=== PATIENT | female | born 1935 | race Caucasian/White ===

== ENCOUNTER 2021-10-02 11:26 | Inpatient (IN) | payer MEDICARE ==
[~2021-10-02] VITALS: Ht 160 cm; Wt 63.5 kg
[~2021-10-02 11:26] MED LIST: ASPIRIN LOW-STR81 MG PO; B-12; CALCIUM; COQ-10; FISH OIL; MULTIMINERAL; NIACIN; VITAMIN D3; Z.0.PRAVASTATIN SOD2 PO; Z.2.LISINOPRIL-HCT1 PO
[2021-10-02] MEDS ORDERED: ONDANSETRON HCL INJ 2MG/ML 2ML 2 MG/ML VIAL IV STA (11:37)
[2021-10-02] MEDS ORDERED: ONDANSETRON HCL INJ 2MG/ML 2ML 2 MG/ML VIAL ONE ×2 (12:07→12:20)
[2021-10-02] MEDS ORDERED: IOPAMIDOL 370 MG/ML 100 ML INFUS..BTL INJ ONE (12:14)
[2021-10-02] MEDS ORDERED: SODIUM CHLORIDE 0.9% 500ML 500 ML IV ONE (12:15)
[2021-10-02] MEDS ORDERED: DEXAMETHASONE SOD PHOS INJ 4 MG/ML SDV ONE (12:20)
[2021-10-02] MEDS ORDERED: LIDOCAINE HCL 2% LOCAL INJ 5 ML SDV VIAL INJ ONE (12:20)
[2021-10-02] MEDS ORDERED: POVIDONE IODINE 0.05% 0.05 % ML PO ONE (12:20)
[2021-10-02] MEDS ORDERED: PROPOFOL IV EMULSION 10 MG/ML 20 ML VIAL ONE (12:20)
[2021-10-02] MEDS ORDERED: SUCCINYLCHOLINE CHLORIDE 20 MG/ML 10ML VIAL ONE (12:20)
[2021-10-02] MEDS ORDERED: SEVOFLURANE INHAL SOLN 250 ML PEN BTL ONE (12:20)
[2021-10-02] MEDS ORDERED: SODIUM CHLORIDE 0.9% 500ML 500 ML ONE (12:55)
[2021-10-02] MEDS ORDERED: Morphine 2mg Syringe 2 MG/ML SYR IV ONE (15:00)
[2021-10-02] MEDS ORDERED: HYDRALAZINE HCL 20 MG/ML VIAL IV PRN (15:15)
[2021-10-02] MEDS ORDERED: Morphine 4mg INJECTION 4 MG/ML INJ ONE (16:05)
[2021-10-02 16:38] VITALS: BP 135/48
[2021-10-02] MEDS ORDERED: SODIUM CHLORIDE 0.9% 1000ML 1,000 ML ONE (18:01)
[2021-10-02 18:02] VITALS: BP 135/48
[2021-10-02] MEDS ORDERED: MELATONIN3 MG PO (18:11)
[2021-10-02] MEDS ORDERED: METOPROLOL SUCC25 MG PO (18:11)
[2021-10-02 19:50] VITALS: BP 133/69
[2021-10-02 20:00] VITALS: BP 133/49
[2021-10-03] VITALS (8 sets, daily range): BP systolic 118–144; BP diastolic 43–57
[2021-10-03] MEDS: Morphine 2mg Syringe 2 MG/ML SYR IV PRN ×3 (00:15→16:51)
[2021-10-03] MEDS: FAMOTIDINE 20 MG/2 ML VIAL IV SCH (09:02)
[2021-10-03] MEDS: ONDANSETRON HCL INJ 2MG/ML 2ML 2 MG/ML VIAL IV PRN ×2 (09:08→16:51)
[2021-10-03 09:12] LABS: BASOPHILS # (AUTO) 0.1 (0.0-0.1); BASOPHILS % 0.9 % (0.0-1.0); EOSINOPHILS # (AUTO) 0.1 (0.0-0.4); EOSINOPHILS % 1.1 % (0.0-6.0); HEMATOCRIT 37.9 % (34.2-44.1); HEMOGLOBIN 11.8 g/dL (12.0-16.0); LYMPHOCYTES % 21.8 % (18.0-39.1); MEAN CORPUSCULAR HEMOGLOBIN 28.4 pg (28-32); MEAN CORPUSCULAR HGB CONC 31.1 g/dL (31-35); MEAN CORPUSCULAR VOLUME 91.1 fL (81-99); MONOCYTES % 10.4 % (4.4-11.3); NEUTROPHILS # (AUTO) 6.1 (2.1-6.9); NEUTROPHILS % 65.6 % (38.7-80.0); PLATELET COUNT 246 x10e3/uL (140-360); RED BLOOD COUNT 4.16 x10e6/uL (3.6-5.1); RED CELL DISTRIBUTION WIDTH 20.6 % (11.7-14.4)
[2021-10-03 09:32] LABS: ALBUMIN 3.4 g/dL (3.5-5.0); CALCIUM 8.7 mg/dL (8.4-10.2); CREATININE, SERUM 0.99 mg/dL (0.57-1.11)
[2021-10-03] MEDS: SODIUM CHLORIDE 0.9% 1000ML 1,000 ML IV SCH ×3 (12:46→21:17)
[2021-10-04] VITALS (9 sets, daily range): BP systolic 134–150; BP diastolic 48–56
[2021-10-04] MEDS: SODIUM CHLORIDE 0.9% 1000ML 1,000 ML IV SCH ×2 (09:27→17:51)
[2021-10-04] MEDS: FAMOTIDINE 20 MG/2 ML VIAL IV SCH (09:28)
[2021-10-04] MEDS: ONDANSETRON HCL INJ 2MG/ML 2ML 2 MG/ML VIAL IV PRN (22:50)
[2021-10-04] MEDS: Morphine 2mg Syringe 2 MG/ML SYR IV PRN (22:50)
[2021-10-05 01:22] VITALS: BP 122/47
[2021-10-05] MEDS: SODIUM CHLORIDE 0.9% 1000ML 1,000 ML IV SCH ×2 (02:44→13:00)
[2021-10-05 05:58] VITALS: BP 131/45
[2021-10-05 08:29] VITALS: BP 129/49
[2021-10-05] MEDS: FAMOTIDINE 20 MG/2 ML VIAL IV SCH (10:26)
[2021-10-05 12:17] VITALS: BP 147/52
[2021-10-05] MEDS ORDERED: BUPIVACAINE 0.25% 30ML SDV ONE (12:39)
[2021-10-05] MEDS ORDERED: FENTANYL CITRATE/PF 100MCG/2 ML INJ ONE (12:54)
[2021-10-05] MEDS ORDERED: MIDAZOLAM HCL 2 MG/2 ML VIAL ONE (12:54)
[2021-10-05] MEDS ORDERED: ACETAMINOPHEN 1000 MG/100 ML 100 ML IV ONE (14:02)
[2021-10-05] MEDS ORDERED: SUGAMMADEX SODIUM 200 MG/2 ML VIAL IV ONE (14:06)
[2021-10-05 16:14] VITALS: BP 132/55
[2021-10-05 20:00] VITALS: BP 120/51
[2021-10-06] VITALS: BP 117/51
[2021-10-06] MEDS: SODIUM CHLORIDE 0.9% 1000ML 1,000 ML IV SCH ×2 (00:42→08:59)
[2021-10-06 04:00] VITALS: BP 127/51
[2021-10-06 05:35] LABS: BASOPHILS % 0.1 % (0.0-1.0); EOSINOPHILS % 0.1 % (0.0-6.0); HEMATOCRIT 34.4 % (34.2-44.1); HEMOGLOBIN 11.3 g/dL (12.0-16.0); LYMPHOCYTES # (AUTO) 0.9 (1.0-3.2); LYMPHOCYTES % 11.1 % (18.0-39.1); MEAN CORPUSCULAR HEMOGLOBIN 28.8 pg (28-32); MEAN CORPUSCULAR HGB CONC 32.8 g/dL (31-35); MEAN CORPUSCULAR VOLUME 87.8 fL (81-99); MONOCYTES # (AUTO) 0.5 (0.2-0.8); MONOCYTES % 5.5 % (4.4-11.3); NEUTROPHILS % 82.5 % (38.7-80.0); PLATELET COUNT 194 x10e3/uL (140-360); RED BLOOD COUNT 3.92 x10e6/uL (3.6-5.1); RED CELL DISTRIBUTION WIDTH 19.7 % (11.7-14.4)
[2021-10-06 05:54] LABS: CREATININE, SERUM 0.74 mg/dL (0.57-1.11)
[2021-10-06 07:53] VITALS: BP 126/48
[2021-10-06] MEDS: FAMOTIDINE 20 MG/2 ML VIAL IV SCH (08:59)
[2021-10-06 09:00] VITALS: BP 126/48
[2021-10-06 12:28] VITALS: BP 117/48
[2021-10-06] MEDS ORDERED: BISACODYL 10 MG SUPP PR ONE (12:30)
[2021-10-06] MEDS ORDERED: ONDANSETRON HCL 4 MG ORAL DISINTEGRATING TAB PO PRN (15:00)
[2021-10-06 16:00] VITALS: BP 119/49
[2021-10-06] MEDS ORDERED: PRAVASTATIN 20 MG TAB PO SCH (21:00)
[2021-10-07] MEDS ORDERED: FAMOTIDINE 20 MG TAB PO SCH (07:30)
[2021-10-07] MEDS ORDERED: METOPROLOL SUCCINATE 25 MG TAB XL PO SCH (09:00)
== END 2021-10-06 15:55 | disposition home or self-care (01) | DRG 336 ==
LOC: FSED 11:31 → OBSVTOIN 14:58 → ERHOLD 14:58 → UNDOADMIN 15:02 → MED/SURG2 16:17
PROVIDERS: ADMIT Internal Medicine; ATTEND Internal Medicine
PROC: 0DN Gastrointestinal System, Release (ICD-10-PCS; principal; 2021-10-05 13:28)
DX: K56.50 Intestinal adhesions [bands], unspecified as to partial versus complete obstruction (principal); I50.22 Chronic systolic (congestive) heart failure; R18.8 Other ascites; I48.91 Unspecified atrial fibrillation; I25.2 Old myocardial infarction; E78.5 Hyperlipidemia, unspecified; I11.0 Hypertensive heart disease with heart failure; D64.9 Anemia, unspecified; I25.10 Atherosclerotic heart disease of native coronary artery without angina pectoris; Z95.5 Presence of coronary angioplasty implant and graft; Z95.0 Presence of cardiac pacemaker; Z82.49 Family history of ischemic heart disease and other diseases of the circulatory system; Z20.822 Contact with and (suspected) exposure to COVID-19; Z86.73 Personal history of transient ischemic attack (TIA), and cerebral infarction without residual deficits
CPT/HCPCS: 36415; 71045; 74018; 74177; 80048; 80053; 81003; 82553; 84484; 85025; 93005; 99284; J0330; J0690; J1100; J2001; J2250; J2270; J2405; J3010; J7030; J7040; Q9967